=== PATIENT | female | born 1985 | race African-American/Black ===

== ENCOUNTER 2016-12-27 17:24 | Emergency (ER) | payer BC ==
[2016-12-27 18:22] VITALS: BP 129/78
[2016-12-27] MEDS ORDERED: HALOPERIDOL LACTATE INJ 5 MG/1 ML VIAL IM ONE (21:10)
[2016-12-27] MEDS ORDERED: HALOPERIDOL LACTATE INJ 5 MG/1 ML VIAL ONE (21:11)
--- NOTE | 2016-12-27 21:11 | ER Document Report ---
ED General - General Chief Complaint: Anxiety Stated Complaint: SLEEPING ISSUES Time Seen by Provider: 12/27/16 21:00 Notes: Patient is a 31 difficulty sleeping. She states she had her Ambien increased, she is not on any stimulants, she states that she is only had 12 hours in the past 5 days. She denies feeling anxious, depressed, having suicidal or homicidal ideations, but she states she is becoming irritable and forgetful because of her lack of sleep. She denies fever, chills, vomiting, she states she is eating and drinking normally. She denies any life changes. She does see her primary care physician and she states that she is pending referral to psychiatry in [place] because she does not like the psychiatry in this town. TRAVEL OUTSIDE OF THE [place] IN LAST 30 DAYS: No - Related Data Allergies/Adverse Reactions: iodine [Iodine] Allergy (Mild, Verified 12/27/16 21:00) Past Medical History - General Information source: Patient - Social History Smoking Status: Never Smoker Frequency of alcohol use: None Drug Abuse: None Lives with: Family Family History: Reviewed & Not Pertinent Patient has suicidal ideation: No Patient has homicidal ideation: No Renal/ Medical History: Denies: Hx Peritoneal Dialysis Psychiatric Medical History: Reports: Hx Anxiety, Hx Depression Past Surgical History: Reports: Hx Section - X2 - Immunizations Immunizations up to date: Yes Hx Diphtheria, Pertussis, Tetanus Vaccination: Yes - unknown Review of Systems - Review of Systems Constitutional: No symptoms reported EENT: No symptoms reported Cardiovascular: No symptoms reported Respiratory: No symptoms reported Gastrointestinal: No symptoms reported Genitourinary: No symptoms reported Female Genitourinary: No symptoms reported Musculoskeletal: No symptoms reported Skin: No symptoms reported Hematologic/Lymphatic: No symptoms reported Neurological/Psychological: See HPI Physical Exam - Vital signs Vitals: Temp Pulse BP Pulse Ox 98.5 F 87 129/78 H 98 12/27/16 09:18 12/27/16 09:18 12/27/16 09:18 12/27/16 09:18 Interpretation: Normal - General General appearance: Appears well, Alert In distress: None - HEENT Head: Normocephalic, Atraumatic. No: Ecchymosis Eyes: Other - Patient does have some bags under her eyes but eye examination is unremarkable otherwise. No: Pale conjunctiva, Periorbital ecchymosis, Periorbital edema, Scleral icterus Extraocular movements intact: Yes Eyelashes: Normal Pupils: PERRL Nasal: Normal Mouth/Lips: Normal Mucous membranes: Normal Pharynx: Normal Neck: Normal - Respiratory Respiratory status: No respiratory distress Chest status: Nontender Breath sounds: Normal Chest palpation: Normal - Cardiovascular Rhythm: Regular. No: Tachycardia Heart sounds: Normal auscultation, S1 appreciated, S2 appreciated Murmur: No - Abdominal Inspection: Normal Distension: No distension Bowel sounds: Normal Tenderness: Nontender Organomegaly: No organomegaly - Back Back: Normal, Nontender - Extremities General upper extremity: Normal inspection, Nontender, Normal color, Normal ROM , Normal temperature General lower extremity: Normal inspection, Nontender, Normal color, Normal ROM , Normal temperature, Normal weight bearing. No: Delroy's sign - Neurological Neuro grossly intact: Yes Cognition: Normal Orientation: AAOx4 Tima Coma Scale Eye Opening: Spontaneous Devers Coma Scale Verbal: Oriented Devers Coma Scale Motor: Obeys Commands Tima Coma Scale Total: 15 Speech: Normal Motor strength normal: LUE, RUE, LLE, RLE Sensory: Normal - Psychological Associated symptoms: Normal affect, Normal mood, Other - Patient speaks with some frustration but she is cooperative, appears to have good insight, is not responding to any internal stimuli - Skin Skin Temperature: Warm Skin Moisture: Dry Skin Color: Normal Course - Re-evaluation Re-evalutation: I had a lengthy discussion with the patient. She simply wants a dose of something tonight that will help her sleep, she states that she does not want to wait here all night and try to sleep in the emergency department, she would rather try to sleep at home. She has a primary care provider who she is working with closely. She does not want to talk to psychiatry here and is looking to have psychiatry down in [place]. She denies SI or HI. She appears tired but she does not appear to be in any distress. Vital signs unremarkable. Physical examination unremarkable. After discussion of different options decided to give patient a dose of haloperidol, patient states satisfaction with this plan, she states she will follow-up tomorrow with her provider. - Vital Signs Vital signs: Temp Pulse Resp BP Pulse Ox 98.5 F 87 129/78 H 98 12/27/16 09:18 12/27/16 09:18 12/27/16 09:18 12/27/16 09:18 Discharge - Discharge Clinical Impression: Sleeping difficulty Condition: Stable Disposition: HOME, SELF-CARE Additional Instructions: Everybody has trouble sleeping now and then. When it becomes a frequent problem, you must look for an underlying cause. Depression can interfere with sleep. Anxiety keeps people from falling asleep, while true depression causes fitful sleep and early awakening. If you think anxiety or depression might be your problem, your doctor can help. Many medicines can interfere with sleep. Try cutting back or eliminating caffeine. Watch out for "energizing" vitamins and herbs! Alcohol interferes powerfully with normal sleep. "Rebound insomnia" results when you stop taking sedating medicines like antihistamines, antianxiety medicine, or sleeping pills. Any medical problem that causes pain or bladder discomfort can interfere with sleep. Discuss any problem you have with your doctor. Get regular exercise. Have regular sleep times. Don't "sleep in." Avoid late afternoon naps. Sleeping pills may be temporarily helpful, but are never a long-term solution. Referrals: KENNA NICHOLE PA-C [Primary Care Provider] - Follow up as needed
== END 2016-12-27 21:33 | disposition home or self-care (01) ==
LOC: ER 17:24
DX: G47.00 Insomnia, unspecified (principal); F41.9 Anxiety disorder, unspecified
CPT/HCPCS: 99283; 96372; J1630

== ENCOUNTER 2017-02-04 11:40 | Emergency (ER) | payer BC ==
--- NOTE | 2017-02-04 12:13 | ER Document Report ---
HPI - HPI Patient complains to provider of: Suprapubic pressure pain Onset: Other - 1 week Onset/Duration: Constant Pain Level: 5 Context: 32-year-old , section, complaining of suprapubic pain and pressure for 1 week. She feels like she has to go to the bathroom either urinate or bowel movements she cannot figure out which. No vaginal discharge odor or dyspareunia. She thought at first that she was ovulating. No contraceptives. No history of STD but she has had bacterial vaginosis in the past. No fibroids. History of physiological ovarian cysts in the past. No history of Crohn's colitis or diverticulitis. Associated Symptoms: None Exacerbated by: Walking Relieved by: Denies Similar symptoms previously: No Recently seen / treated by doctor: No - ROS ROS below otherwise negative: Yes Systems Reviewed and Negative: Yes All other systems reviewed and negative - REPRODUCTIVE Reproductive: DENIES: : Past Medical History - General Information source: Patient - Social History Smoking Status: Never Smoker Frequency of alcohol use: None Drug Abuse: None Lives with: Family Family History: Reviewed & Not Pertinent Renal/ Medical History: Denies: Hx Peritoneal Dialysis Psychiatric Medical History: Reports: Hx Anxiety, Hx Depression Past Surgical History: Reports: Hx Section - X2 - Immunizations Immunizations up to date: Yes Hx Diphtheria, Pertussis, Tetanus Vaccination: Yes - unknown Vertical Provider Document - CONSTITUTIONAL Agree With Documented VS: Yes Exam Limitations: No Limitations General Appearance: No Apparent Distress - INFECTION CONTROL TRAVEL OUTSIDE OF THE [place] IN LAST 30 DAYS: No - HEENT HEENT: Normocephalic - NECK Neck: Supple - RESPIRATORY Respiratory: Breath Sounds Normal, No Respiratory Distress O2 Sat by Pulse Oximetry: 100 - CARDIOVASCULAR Cardiovascular: Regular Rate, Regular Rhythm - GI/ABDOMEN Gastrointestinal: Abdomen Soft, Abdomen Tender - minimal low abdomen above the pelvic area - BACK Back: Normal Inspection. negative: CVA Tenderness-Right, CVA Tenderness-Left - MUSCULOSKELETAL/EXTREMETIES Musculoskeletal/Extremeties: MARYURI CARRENO - NEURO Level of Consciousness: Awake, Alert, Appropriate - DERM Integumentary: Warm, Dry Course - Re-evaluation Re-evalutation: 02/04/17 12:29 Urine is negative but I did add a urine culture and since she has pain over the bladder area I will treat for 3 days pending the urine culture she is fine with that. She will follow-up with Dr. Genao or return to the emergency room for worsening symptoms this weekend. test is negative. - Vital Signs Vital signs: Temp Pulse Resp BP Pulse Ox 98.4 F 79 18 112/68 100 02/04/17 11:46 02/04/17 11:46 02/04/17 11:46 02/04/17 11:46 02/04/17 11:46 Discharge - Discharge Clinical Impression: Lower abdominal pain Condition: Good Disposition: HOME, SELF-CARE Instructions: Abdominal Pain ([facility]), Ciprofloxacin ([facility]) Additional Instructions: Urine culture is pending Take plenty of fluids Follow-up with Dr. Genao if persists Return to the emergency room this weekend if worse Please complete the patient satisfaction survey if you get one, and return it.. If you do not receive a survey, then you can go to the [facility] website, [email or web address] and place your comments about your very good care. Thank you very much. It was a pleasure being your medical provider today. Prescriptions: Ciprofloxacin HCl [Cipro 500 mg Tablet] 500 mg PO BID #5 tablet Referrals: THERESA GENAO MD [EMER[facility]] - 02/07/17
[2017-02-04 12:16] LABS: APPEARANCE,URINE CLEAR; BILIRUBIN,URINE NEGATIVE (NEGATIVE); GLUCOSE, URINE NEGATIVE (NEGATIVE); KETONES,URINE NEGATIVE (NEGATIVE); LEUKOCYTE ESTERASE,URINE NEGATIVE (NEGATIVE); NITRITE,URINE NEGATIVE (NEGATIVE); PROTEIN,URINE NEGATIVE (NEGATIVE); URINE SPECIFIC GRAVITY 1.025; UROBILINOGEN,URINE NEGATIVE mg/dL (<2.0)
[2017-02-04] MEDS ORDERED: CIPROFLOXACIN HCL 500 MG TABLET PO ONE (12:31)
[2017-02-04] MEDS ORDERED: ACETAMINOPHEN 325 MG TABLET PO ONE (12:31)
[2017-02-04 12:45] VITALS: BP 125/81
== END 2017-02-04 12:46 | disposition home or self-care (01) ==
LOC: ER 11:40
DX: R10.30 Lower abdominal pain, unspecified (principal)
CPT/HCPCS: 81001; 81025; 87086; 99284

== ENCOUNTER 2017-03-06 07:53 | Emergency (ER) | payer BC ==
[2017-03-06] MEDS ORDERED: NORMAL SALINE 1000 ML 1,000 ML IV ONE (08:29)
[2017-03-06] MEDS ORDERED: ACETAMINOPHEN 325 MG TABLET PO ONE (08:29)
[2017-03-06 09:18] LABS: APPEARANCE,URINE SLIGHTLY-CLOUDY; BILIRUBIN,URINE NEGATIVE (NEGATIVE); GLUCOSE, URINE NEGATIVE (NEGATIVE); KETONES,URINE NEGATIVE (NEGATIVE); LEUKOCYTE ESTERASE,URINE NEGATIVE (NEGATIVE); NITRITE,URINE NEGATIVE (NEGATIVE); PROTEIN,URINE NEGATIVE (NEGATIVE); UROBILINOGEN,URINE NEGATIVE mg/dL (<2.0)
--- NOTE | 2017-03-06 10:29 | RADIOLOGY REPORT (SQ) ---
EXAM DESCRIPTION: U/S OB TRANSVAG W/DOPPLER COMPLETED DATE/TIME: 03/06/2017 9:55 am REASON FOR STUDY: +preg back abd pain COMPARISON: None. TECHNIQUE: Endovaginal static and realtime grayscale images acquired of the pelvis. Additional selec jessie spectral and color Doppler images recorded. All images stored on PACs. bHCG: Not available LIMITATIONS: None. FINDINGS: UTERUS: No masses. Uterus measures 9 x 6 x 4 cm in size. GESTATIONAL SAC: An anechoic intrauterine gestational sac is present with surrounding decidual reacti on. By mean sac diameter, estimated age is 5 weeks 4 days. YOLK SAC: Not identified POLE: Not identified RIGHT ADNEXA: Right ovary is 3.3 x 4 x 2.2 cm in size with a complex cyst, 2.2 x 1.9 cm in size. Thi s likely represents a corpus luteum. Right ovarian ectopic and pseudo gestational sac in the uterus could not entirely be excluded. Close clinical follow-up with serial quantitative HCG and repeat ult rasound recommended. No adnexal free fluid. No adnexal masses. LEFT ADNEXA: Not visualized due to bowel gas FREE FLUID: None. OTHER: No other significant finding. IMPRESSION: POSSIBLE EARLY INTRAUTERINE . BHCG LEVEL APPROPRIATE FOR ENDOMETRIAL FINDINGS. CONSIDER F/U BHCG AND/OR ULTRASOUND FOR VERIFICATION AND TO EXCLUDE ECTOPIC . Trimester of : First - 0 to 13 weeks. TECHNICAL DOCUMENTATION: JOB ID: [id number] [employer]- All Rights Reserved
[2017-03-06 10:54] LABS: ABSOLUTE BASOPHILS # (AUTO) 0.1 10^3/uL (0.0-0.2); ABSOLUTE LYMPHOCYTES (AUTO) 1.9 10^3/uL (0.5-4.7); ABSOLUTE MONOCYTES (AUTO) 0.5 10^3/uL (0.1-1.4); ABSOLUTE NEUT (AUTO) 6.7 10^3/uL (1.7-8.2); BASOPHILS % (AUTO) 0.8 % (0-2); EOSINOPHILS % (AUTO) 0.4 % (0-6); HEMATOCRIT 36.4 % (36.0-47.0); HEMOGLOBIN 12.1 g/dL (12.0-15.5); HGB HCT DIFFERENCE -0.1; LYMPHOCYTES % (AUTO) 20.3 % (13-45); MEAN CORPUSCULAR HEMOGLOBIN 27.8 pg (27.0-33.4); MEAN CORPUSCULAR HGB CONC 33.1 g/dL (32.0-36.0); MEAN CORPUSCULAR VOLUME 84 fl (80-97); MONOCYTES % (AUTO) 5.6 % (3-13); RED BLOOD COUNT 4.33 10^6/uL (3.72-5.28); RED CELL DISTRIBUTION WIDTH 12.7 % (11.5-14.0); SEGMENTED NEUTROPHILS % (AUTO) 72.9 % (42-78); WHITE BLOOD COUNT 9.1 10^3/uL (4.0-10.5)
[2017-03-06 11:07] LABS: ALANINE AMINOTRANSFERASE 29 U/L (9-52); ALBUMIN 3.9 g/dL (3.5-5.0); ALKALINE PHOSPHATASE 37 U/L (38-126); ANION GAP 10 (5-19); ASPARTATE AMINO TRANSFERASE 22 U/L (14-36); BILIRUBIN,DIRECT 0.2 mg/dL (0.0-0.4); BILIRUBIN,TOTAL 0.2 mg/dL (0.2-1.3); BLOOD UREA NITROGEN 8 mg/dL (7-20); CALCIUM 8.8 mg/dL (8.4-10.2); CARBON DIOXIDE 24 mmol/L (22-30); CHLORIDE 105 mmol/L (98-107); CREATININE RESULT 0.69 mg/dL (0.52-1.25); GLUCOSE 92 mg/dL (75-110); POTASSIUM 4.3 mmol/L (3.6-5.0); SODIUM 138.9 mmol/L (137-145)
--- NOTE | 2017-03-06 12:18 | ER Document Report ---
ED General - General Chief Complaint: Pelvic Pain Stated Complaint: BACK PAIN Time Seen by Provider: 03/06/17 08:12 TRAVEL OUTSIDE OF THE [place] IN LAST 30 DAYS: No - HPI Patient complains to provider of: Lower back pain right sided abdominal pain superior pain Notes: Patient coming in stating she is coming in for lower abdominal pain. States ongoing for the last few days. Patient denies any fevers chills nausea vomiting diarrhea denies any dysuria. Patient states she is a . Denies a history of ectopic in the past denies any vaginal bleeding vaginal discharge. Patient is resting comfortably upon my evaluation. - Related Data Allergies/Adverse Reactions: iodine [Iodine] Allergy (Mild, Verified 02/04/17 11:49) Past Medical History - Social History Smoking Status: Never Smoker Frequency of alcohol use: None Drug Abuse: None Family History: Reviewed & Not Pertinent Patient has suicidal ideation: No Patient has homicidal ideation: No Renal/ Medical History: Denies: Hx Peritoneal Dialysis Psychiatric Medical History: Reports: Hx Anxiety, Hx Depression Past Surgical History: Reports: Hx Section - X2 - Immunizations Immunizations up to date: Yes Hx Diphtheria, Pertussis, Tetanus Vaccination: Yes - unknown Review of Systems - Review of Systems Constitutional: No symptoms reported EENT: No symptoms reported Cardiovascular: No symptoms reported Respiratory: No symptoms reported Gastrointestinal: Abdominal pain Genitourinary: No symptoms reported Female Genitourinary: No symptoms reported Musculoskeletal: No symptoms reported Skin: No symptoms reported Hematologic/Lymphatic: No symptoms reported Neurological/Psychological: No symptoms reported Physical Exam - Vital signs Vitals: Temp Pulse Resp BP Pulse Ox 98.2 F 90 18 103/61 99 03/06/17 07:59 03/06/17 07:59 03/06/17 07:59 03/06/17 07:59 03/06/17 07:59 Interpretation: Normal - General General appearance: Appears well, Alert - HEENT Head: Normocephalic, Atraumatic Eyes: Normal Pupils: PERRL - Respiratory Respiratory status: No respiratory distress Chest status: Nontender Breath sounds: Normal Chest palpation: Normal - Cardiovascular Rhythm: Regular Heart sounds: Normal auscultation Murmur: No - Abdominal Inspection: Normal Distension: No distension Bowel sounds: Normal Tenderness: Nontender Organomegaly: No organomegaly - Back Back: Normal, Nontender - Extremities General upper extremity: Normal inspection, Nontender, Normal color, Normal ROM , Normal temperature General lower extremity: Normal inspection, Nontender, Normal color, Normal ROM , Normal temperature, Normal weight bearing. No: Delroy's sign - Neurological Neuro grossly intact: Yes Cognition: Normal Orientation: AAOx4 Bea[place] Coma Scale Eye Opening: Spontaneous [place] Coma Scale Verbal: Oriented Tima Coma Scale Motor: Obeys Commands Bea[place]ont Coma Scale Total: 15 Speech: Normal Motor strength normal: LUE, RUE, LLE, RLE Sensory: Normal - Psychological Associated symptoms: Normal affect, Normal mood - Skin Skin Temperature: Warm Skin Moisture: Dry Skin Color: Normal Course - Re-evaluation Re-evalutation: 03/06/17 15:22 Ultrasound shows possible IUP I did review the ultrasound in the ER with Dr. Guzman who agrees with my assessment that ultrasound along with the beta-hCG findings looks to be consistent with an IUP. At this time no other worries or signs of an ectopic . Patient is follow-up with her [employer] continue your vitamins. Patient was given Reglan for possible nausea. Patient discharged home. - Vital Signs Vital signs: Temp Pulse Resp BP Pulse Ox 98.5 F 68 14 106/61 99 03/06/17 12:42 03/06/17 12:42 03/06/17 12:42 03/06/17 12:42 03/06/17 12:42 - Laboratory Result Diagrams: 03/06/17 10:43 03/06/17 10:43 Laboratory results interpreted by me: 03/06/17 10:43 Alkaline Phosphatase 37 L Beta HCG, Quant 6611.50 H Discharge - Discharge Clinical Impression: Abdominal pain during Qualifiers: Trimester: first trimester Qualified Code(s): O26.891 - Other specified related conditions, first trimester Condition: Good Disposition: HOME, SELF-CARE Instructions: Abdominal Pain ([facility]), Ectopic Precaution ([facility]), Pelvic Pain in and Round Ligament Pain ([facility]) Additional Instructions: At this time your ultrasound shows a gestational sac in the uterus your beta hCG is 6600. I reviewed your ultrasound pictures with her [employer] at this time does not look like any signs of ectopic . Please follow-up with your scheduled [employer] continue your vitamins. Return to ER if symptoms worsen. Prescriptions: Metoclopramide HCl [Reglan] 5 mg PO Q6 #30 tablet Referrals: HANNAH YU MD [Primary Care Provider] - Follow up as needed
[2017-03-06 12:52] VITALS: BP 106/61
== END 2017-03-06 12:42 | disposition home or self-care (01) ==
LOC: ER 07:53
DX: O26.891 Other specified pregnancy related conditions, first trimester (principal); R10.2 Pelvic and perineal pain; M54.9 Dorsalgia, unspecified; R10.30 Lower abdominal pain, unspecified; Z3A.00 Weeks of gestation of pregnancy not specified
CPT/HCPCS: 36415; 76817; 80053; 81001; 84702; 85025; 93976; 99284

== ENCOUNTER 2017-03-17 15:26 | Emergency (ER) | payer BC ==
--- NOTE | 2017-03-17 16:42 | ER Document Report ---
HPI - HPI Pain Level: 3 Notes: Patient is a 32-year-old female who is approximately 8 weeks who presents to the ED complaining of noticing vaginal bleeding after using the bathroom after waking up from a nap this afternoon with an episode of mild cramping. Patient states that it was not a heavy bleed, but it was not a scant streak either. Patient states that she did have one miscarriage in the past at approximately 6 weeks . Patient states that she has an [employer] in [place]. She is otherwise eating and drinking without any difficulties. She is urinating normally and having normal bowel movements. Patient has not had any other recent illness. She has no other concerns or complaints at this time. Patient is not sure of her blood type. Pt has no concern for STD/STI, denies vaginal odor/discharge otherwise. Denies any headache, fever, neck pain , URI, sore throat, chest pain, palpitations, syncope, cough, shortness of breath, wheeze, dyspnea, nausea/vomiting/diarrhea, urinary retention, dysuria, hematuria, loss of control of bowel or bladder, numbness/tingling, saddle anesthesia, muscle paralysis/weakness, or rash. - ROS Notes: REVIEW OF SYSTEMS: CONSTITUTIONAL : Denies fever, chills, or sweats. Denies recent illness. EENT: Denies eye, ear, throat, or mouth pain or symptoms. Denies nasal or sinus congestion or discharge. Denies throat, tongue, or mouth swelling or difficulty swallowing. CARDIOVASCULAR: Denies chest pain. Denies palpitations or racing or irregular heart beat. Denies ankle edema. RESPIRATORY: Denies cough, cold, or chest congestion. Denies shortness of breath, difficulty breathing, or wheezing. GASTROINTESTINAL: Denies nausea, vomiting, or diarrhea. Denies blood in vomitus, stools, or per rectum. Denies black, tarry stools. Denies constipation. GENITOURINARY: Denies difficulty urinating, painful urination, burning, frequency, blood in urine, or discharge. FEMALE GENITOURINARY: see hpi MUSCULOSKELETAL: Denies back or neck pain or stiffness. Denies joint pain or swelling. SKIN: Denies rash, lesions or sores. NEUROLOGICAL: Denies confusion or altered mental status. Denies passing out or loss of consciousness. Denies dizziness or lightheadedness. Denies headache. Denies weakness or paralysis or loss of use of either side. Denies problems with gait or speech. Denies sensory loss, numbness, or tingling. Denies seizures. ALL OTHER SYSTEMS REVIEWED AND NEGATIVE. Dictation was performed using [employer] voice recognition software - REPRODUCTIVE Reproductive: DENIES: : Past Medical History - Social History Smoking Status: Never Smoker Family History: Reviewed & Not Pertinent Renal/ Medical History: Denies: Hx Peritoneal Dialysis Psychiatric Medical History: Reports: Hx Anxiety, Hx Depression Past Surgical History: Reports: Hx Section - X2 - Immunizations Immunizations up to date: Yes Hx Diphtheria, Pertussis, Tetanus Vaccination: Yes - unknown Vertical Provider Document - CONSTITUTIONAL Agree With Documented VS: Yes Notes: PHYSICAL EXAMINATION: GENERAL: Well-appearing, well-nourished and in no acute distress. A&Ox4 LUNGS: Breath sounds clear to auscultation bilaterally and equal. No wheezes rales or rhonchi. HEART: Regular rate and rhythm without murmurs, rubs, gallops. ABDOMEN: Soft, nontender, nondistended abdomen. No guarding, no rebound. No masses appreciated. Normal bowel sounds present. No CVA tenderness bilaterally. : deferred Musculoskeletal: FROM to passive/active. Strength 5+/5. Extremities: No cyanosis, clubbing, or edema b/l. Peripheral pulses 2+. Capillary refill less than 3 seconds. NEUROLOGICAL: Normal speech, normal gait. Normal sensory, motor exams PSYCH: Normal mood, normal affect. SKIN: Warm, Dry, normal turgor, no rashes or lesions noted. - INFECTION CONTROL TRAVEL OUTSIDE OF THE [place] IN LAST 30 DAYS: No Course - Re-evaluation Re-evalutation: 03/17/17 18:30 Patient is an afebrile, well-hydrated, 32-year-old female who presents to the ED with an intrauterine , closed cervix, otherwise a threatened vs benign bleeding episode. Vitals are stable. PE is otherwise unremarkable. She is currently asymptomatic. CBC, CMP, urinalysis are unremarkable for any acute pathology. HCG is appropriate with a viable intrauterine noted on ultrasound without any obvious bleed and HR of 163. Low suspicion/risk for acute appendicitis, bowel obstruction, acute cholecystitis, acute cholangitis, perforated diverticulitis, incarcerated hernia , pancreatitis, perforated ulcer, peritonitis, sepsis, pelvic inflammatory disease, ectopic , tubo-ovarian abscess, ovarian torsion, or other systemic emergent condition at this time. Patient is aware that her condition can change from initial presentation and she needs to monitor symptoms closely and seek medical attention if any acute changes. Conservative measures otherwise for symptoms. Recheck with OBGYN in 2-3 days. Recheck with your PCM in 3-5 days. Return to the ED with any worsening/concerning symptoms otherwise as reviewed in discharge. Patient is in agreement. - Laboratory Result Diagrams: 03/17/17 16:30 03/17/17 16:30 Discharge - Discharge Clinical Impression: Vaginal bleeding in patient at less than 20 weeks gestation Condition: Stable Disposition: HOME, SELF-CARE Instructions: Pelvic Pain in ([facility]), Bleeding During Early ( [facility]) Additional Instructions: Maintain fluids Proper hygenic technique Keep the skin clean Tylenol as needed F/u with your PCM in 3-5 days for a recheck Schedule an appointment with your [employer] for a follow-up in 2-3 days* Return to the ED with any development of MARIA/fever, trouble with vision, eye redness, worsening pain, urethral discharge, urinary retention, blood in the urine, flank pain, abdominal pain, n/v, Chest Pain, shortness of breath, joint pains, trouble breathing, worsening vaginal bleeding/cramping, or any other worsening/concerning symptoms as needed otherwise. Referrals: RIGOBERTO HARTLEY MD [Primary Care Provider] - Follow up as needed [facility] [Provider Group] - 03/19/17
[2017-03-17 16:49] LABS: ABSOLUTE BASOPHILS # (AUTO) 0.1 10^3/uL (0.0-0.2); ABSOLUTE EOSINOPHILS # (AUTO) 0.1 10^3/uL (0.0-0.6); ABSOLUTE LYMPHOCYTES (AUTO) 2.3 10^3/uL (0.5-4.7); ABSOLUTE MONOCYTES (AUTO) 0.8 10^3/uL (0.1-1.4); ABSOLUTE NEUT (AUTO) 7.5 10^3/uL (1.7-8.2); APPEARANCE,URINE CLEAR; BASOPHILS % (AUTO) 0.5 % (0-2); BILIRUBIN,URINE NEGATIVE (NEGATIVE); COLOR,URINE YELLOW; EOSINOPHILS % (AUTO) 0.9 % (0-6); GLUCOSE, URINE NEGATIVE (NEGATIVE); HEMATOCRIT 39.8 % (36.0-47.0); HEMOGLOBIN 13.3 g/dL (12.0-15.5); KETONES,URINE NEGATIVE (NEGATIVE); LEUKOCYTE ESTERASE,URINE NEGATIVE (NEGATIVE); LYMPHOCYTES % (AUTO) 21.2 % (13-45); MEAN CORPUSCULAR HEMOGLOBIN 28.1 pg (27.0-33.4); MEAN CORPUSCULAR HGB CONC 33.5 g/dL (32.0-36.0); MEAN CORPUSCULAR VOLUME 84 fl (80-97); MONOCYTES % (AUTO) 7.3 % (3-13); NITRITE,URINE NEGATIVE (NEGATIVE); PLATELET COUNT 384 10^3/uL (150-450); PROTEIN,URINE NEGATIVE (NEGATIVE); RED BLOOD COUNT 4.74 10^6/uL (3.72-5.28); RED CELL DISTRIBUTION WIDTH 12.8 % (11.5-14.0); SEGMENTED NEUTROPHILS % (AUTO) 70.1 % (42-78); TOTAL CELLS COUNTED % (AUTO) 100 %; UROBILINOGEN,URINE NEGATIVE mg/dL (<2.0); WHITE BLOOD COUNT 10.7 10^3/uL (4.0-10.5)
[2017-03-17 17:04] LABS: ALANINE AMINOTRANSFERASE 28 U/L (9-52); ALBUMIN 4.2 g/dL (3.5-5.0); ALKALINE PHOSPHATASE 37 U/L (38-126); ANION GAP 11 (5-19); ASPARTATE AMINO TRANSFERASE 20 U/L (14-36); BILIRUBIN,DIRECT 0.1 mg/dL (0.0-0.4); BILIRUBIN,TOTAL 0.1 mg/dL (0.2-1.3); BLOOD UREA NITROGEN 11 mg/dL (7-20); CALCIUM 9.8 mg/dL (8.4-10.2); CARBON DIOXIDE 26 mmol/L (22-30); CHLORIDE 101 mmol/L (98-107); GLUCOSE 80 mg/dL (75-110); TOTAL PROTEIN 7.4 g/dL (6.3-8.2)
--- NOTE | 2017-03-17 18:07 | RADIOLOGY REPORT (SQ) ---
EXAM DESCRIPTION: U/S OB TRANSVAG W/DOPPLER COMPLETED DATE/TIME: 03/17/2017 5:52 pm REASON FOR STUDY: vaginal bleeding, COMPARISON: 03/06/2017 TECHNIQUE: Transvaginal static and realtime grayscale images acquired of the pelvis. Additional alethea cted spectral and color Doppler images recorded. All images stored on PACs. bHCG: Not available LIMITATIONS: None. FINDINGS: FETUS: Living intrauterine . EGA: 6 weeks 3 days MOISES: 11/07/2017 FHR: 163 beats per minute. SUBCHORIONIC BLEED: No SIZE OF BLEED: Not applicable. UTERUS: No masses. No anomalies. CERVICAL LENGTH: 4.1 cm Closed. RIGHT ADNEXA: A complex area is identified in the right ovary measuring 1.6 x 2.1 x 1.6 cm in diamete rs which may represent a corpus lutein cyst LEFT ADNEXA: Left ovary was not visualized. FREE FLUID: None. OTHER: No other significant finding. IMPRESSION: LIVING INTRAUTERINE . EGA 6 weeks 3 days Trimester of : First - 0 to 13 weeks. TECHNICAL DOCUMENTATION: JOB ID: [id number] [employer]- All Rights Reserved
[2017-03-17 19:09] VITALS: BP 106/64
== END 2017-03-17 19:09 | disposition home or self-care (01) ==
LOC: ER 15:26
DX: O46.91 Antepartum hemorrhage, unspecified, first trimester (principal); R10.9 Unspecified abdominal pain; Z3A.08 8 weeks gestation of pregnancy
CPT/HCPCS: 36415; 76817; 80053; 81001; 84702; 85025; 86900; 86901; 87086; 93976; 99284

== ENCOUNTER 2019-03-26 23:37 | Emergency (ER) | payer BC ==
[2019-03-27 02:21] LABS: ABSOLUTE BASOPHILS # (AUTO) 0.1 10^3/uL (0.0-0.2); ABSOLUTE EOSINOPHILS # (AUTO) 0.2 10^3/uL (0.0-0.6); ABSOLUTE LYMPHOCYTES (AUTO) 3.9 10^3/uL (0.5-4.7); ABSOLUTE MONOCYTES (AUTO) 0.7 10^3/uL (0.1-1.4); ABSOLUTE NEUT (AUTO) 7.2 10^3/uL (1.7-8.2); BASOPHILS % (AUTO) 0.8 % (0-2); EOSINOPHILS % (AUTO) 1.7 % (0-6); HEMATOCRIT 40.4 % (36.0-47.0); HEMOGLOBIN 13.1 g/dL (12.0-15.5); LYMPHOCYTES % (AUTO) 32.2 % (13-45); MEAN CORPUSCULAR HEMOGLOBIN 27.5 pg (27.0-33.4); MEAN CORPUSCULAR HGB CONC 32.4 g/dL (32.0-36.0); MEAN CORPUSCULAR VOLUME 85 fl (80-97); MONOCYTES % (AUTO) 6.1 % (3-13); PLATELET COUNT 346 10^3/uL (150-450); RED BLOOD COUNT 4.77 10^6/uL (3.72-5.28); RED CELL DISTRIBUTION WIDTH 13.7 % (11.5-14.0); SEGMENTED NEUTROPHILS % (AUTO) 59.2 % (42-78); TOTAL CELLS COUNTED % (AUTO) 100 %; WHITE BLOOD COUNT 12.2 10^3/uL (4.0-10.5)
--- NOTE | 2019-03-27 02:36 | ER Document Report ---
ED General - General Chief Complaint: Chest Pain Stated Complaint: CHEST PAIN/LIGHTHEADED Time Seen by Provider: 03/27/19 02:18 Primary Care Provider: RIGOBERTO HARTLEY MD [Primary Care Provider] - Follow up as needed TRAVEL OUTSIDE OF THE [place] IN LAST 30 DAYS: No - HPI Patient complains to provider of: chest pain. Onset: This evening Onset/Duration: Sudden Severity: Severe Pain Level: 5 Context: 34 year old female with h/o depression and anxiety takes loestrin and smokes thc on occaision is here with chest pain that started abruptly at home while watering plants. She was watching [place] with her and developed the chest pain and then almost fell out as she became dizzy. Pain is now gone but she can tell that it used to hurt there. Exacerbated by: Denies Relieved by: Denies - Related Data Allergies/Adverse Reactions: iodine [Iodine] Allergy (Mild, Verified 03/17/17 15:28) shellfish derived Allergy (Verified 03/27/19 00:09) Home Medications: controll pills. Buspar Past Medical History - Social History Smoking Status: Never Smoker Family History: Reviewed & Not Pertinent Patient has suicidal ideation: No Patient has homicidal ideation: No Renal/ Medical History: Denies: Hx Peritoneal Dialysis Psychiatric Medical History: Reports: Hx Anxiety, Hx Depression Past Surgical History: Reports: Hx Section - x3 - Immunizations Immunizations up to date: Yes Hx Diphtheria, Pertussis, Tetanus Vaccination: Yes - unknown Review of Systems - Review of Systems Constitutional: No symptoms reported EENT: No symptoms reported Cardiovascular: See HPI, Chest pain Respiratory: No symptoms reported Gastrointestinal: No symptoms reported Genitourinary: No symptoms reported Female Genitourinary: No symptoms reported Musculoskeletal: No symptoms reported Skin: No symptoms reported Hematologic/Lymphatic: No symptoms reported Neurological/Psychological: No symptoms reported Physical Exam - Vital signs Vitals: Temp Pulse Resp BP Pulse Ox 97.8 F 73 20 127/79 H 98 03/26/19 23:44 03/26/19 23:44 03/26/19 23:44 03/26/19 23:44 03/26/19 23:44 Interpretation: Normal - General General appearance: Appears well, Alert - HEENT Head: Normocephalic, Atraumatic Eyes: Normal Pupils: PERRL - Respiratory Respiratory status: No respiratory distress Chest status: Nontender Breath sounds: Normal Chest palpation: Normal - Cardiovascular Rhythm: Regular Heart sounds: Normal auscultation Murmur: No - Abdominal Inspection: Normal Distension: No distension Bowel sounds: Normal Tenderness: Nontender Organomegaly: No organomegaly - Back Back: Normal, Nontender - Extremities General upper extremity: Normal inspection, Nontender, Normal color, Normal ROM, Normal temperature General lower extremity: Normal inspection, Nontender, Normal color, Normal ROM, Normal temperature, Normal weight bearing. No: Delroy's sign - Neurological Neuro grossly intact: Yes Cognition: Normal Orientation: AAOx4 Tima Coma Scale Eye Opening: Spontaneous Tima Coma Scale Verbal: Oriented Tima Coma Scale Motor: Obeys Commands Tima Coma Scale Total: 15 Speech: Normal Motor strength normal: LUE, RUE, LLE, RLE Sensory: Normal - Psychological Associated symptoms: Normal affect, Normal mood - Skin Skin Temperature: Warm Skin Moisture: Dry Skin Color: Normal Course - Vital Signs Vital signs: Temp Pulse Resp BP Pulse Ox 97.3 F 88 16 127/73 H 98 03/27/19 06:03 03/27/19 06:03 03/27/19 06:03 03/27/19 06:03 03/27/19 06:03 - Laboratory Result Diagrams: 03/27/19 02:05 03/27/19 03:10 Laboratory results interpreted by me: 03/27/19 02:05 WBC 12.2 H - EKG Interpretation by In EKG shows normal: Sinus rhythm Rate: Normal Rhythm: NSR - NSR NL [place] [address] elevation or depression my interpretation. Discharge - Discharge Clinical Impression: Chest pain Qualifiers: Chest pain type: unspecified Qualified Code(s): R07.9 - Chest pain, unspecified Condition: Good Disposition: HOME, SELF-CARE Instructions: Chest Pain of Unclear Cause ([facility]) Additional Instructions: Avoid smoking marijuania. See your doctor in follow up. Call them today. Please return here for any problems or any concerns. Referrals: RIGOBERTO HARTLEY MD [Primary Care Provider] - Follow up as needed
--- NOTE | 2019-03-27 03:31 | RADIOLOGY REPORT (SQ) ---
EXAM DESCRIPTION: X-RAY CHEST 1 VIEW CLINICAL HISTORY: 34 years, Female, chest pain COMPARISON: None. FINDINGS: Portable upright chest at 0251 hours on 03/27/2019. EKG leads and external artifact from a bra overlie the chest projection. The lungs are adequately expanded and clear. The costophrenic angles are sharp. The cardiac silhouette, hilar regions, trachea, soft tissues and bony structures are unremarkable. IMPRESSION: No acute cardiopulmonary disease.
[2019-03-27 03:37] LABS: ALBUMIN 4.1 g/dL (3.5-5.0); ALKALINE PHOSPHATASE 39 U/L (38-126); ANION GAP 10 (5-19); ASPARTATE AMINO TRANSFERASE 26 U/L (14-36); BILIRUBIN,DIRECT 0.2 mg/dL (0.0-0.4); BILIRUBIN,TOTAL 0.3 mg/dL (0.2-1.3); BLOOD UREA NITROGEN 11 mg/dL (7-20); CALCIUM 9.1 mg/dL (8.4-10.2); CARBON DIOXIDE 26 mmol/L (22-30); CHLORIDE 104 mmol/L (98-107); GLUCOSE 87 mg/dL (75-110); POTASSIUM 4.2 mmol/L (3.6-5.0); TOTAL PROTEIN 7.7 g/dL (6.3-8.2)
[2019-03-27 05:48] VITALS: BP 127/73
--- NOTE | 2019-03-27 22:38 | EKG REPORT ---
SEVERITY:- NORMAL ECG - SINUS RHYTHM : Confirmed by: Essie Betancourt 27-Mar-2019 22:37:45
== END 2019-03-27 06:04 | disposition home or self-care (01) ==
LOC: ER 23:37
DX: R07.9 Chest pain, unspecified (principal); R42 Dizziness and giddiness; F41.9 Anxiety disorder, unspecified; Z79.899 Other long term (current) drug therapy; Z79.3 Long term (current) use of hormonal contraceptives; Z91.013 Allergy to seafood
CPT/HCPCS: 36415; 71045; 80053; 81025; 84484; 85025; 85379; 93005; 93010; 99285